=== PATIENT | male | born 1975 | race Caucasian/White ===

== ENCOUNTER → 2016-08-31 | Outpatient (CLI) | payer OTHER ==
[2016-08-31 11:36] LABS: HIV ANTIBODY NEGATIVE (N); HIV-1 P24 ANTIGEN NEGATIVE (N)
[2016-09-01 13:15] LABS: HEP B CORE IGM ANTIBODY Negative (Negative); HEPATITIS B SURFACE AG Negative (Negative)
[2016-09-01 14:23] LABS: HEPATITIS C ANTIBODY SCREEN Negative (Negative); SYPHILIS IGG WITH REFLEX Negative (Negative)
== END ==
LOC: MOB LAB 09:52
PROVIDERS: ATTEND Physician Assistant Medical
DX: Z11.3 Encounter for screening for infections with a predominantly sexual mode of transmission (principal)
CPT/HCPCS: 36415; 86695; 86696; 86703; 86705; 86709; 86780; 86803; 87340; 87491; 87591

== ENCOUNTER → 2016-09-03 | Outpatient (CLI) | payer OTHER ==
[2016-09-03 10:57] LABS: HEMATOCRIT 49.2 % (42.0-52.0); HEMOGLOBIN 17.5 g/dL (14.0-18.0); MEAN CORPUSCULAR HEMOGLOBIN 32.5 PG (27-31); MEAN CORPUSCULAR HGB CONC 35.6 g/dL (33-37); MEAN PLATELET VOLUME 9.3 FL (7.4-12.2); RDW COEFFICIENT OF VARIATION 12.3 % (11.5-14.5); RED BLOOD COUNT 5.38 10^6/uL (4.70-6.10); WHITE BLOOD COUNT 5.8 10^3/uL (4.8-10.8)
[2016-09-03 11:03] LABS: BLOOD UREA NITROGEN 15 mg/dL (7-22); BUN/CREATININE RATIO 13.63 (6-20); CALCIUM 9.7 mg/dL (8.7-10.7); CHLORIDE 102 meq/L (98-112); CREATININE 1.1 mg/dL (0.70-1.50); EST GLOMERULAR FILTRATION > 60 (>60 ml/min/1.73m(2)); GLUCOSE 86 mg/dL (78-110); POTASSIUM 4.3 meq/L (3.8-5.2); SODIUM 140 meq/L (135-145)
[2016-09-03 11:04] LABS: ASPARTATE AMINO TRANSFERASE 33 IU/L (21-57); BILIRUBIN,TOTAL 0.9 mg/dL (0.3-1.2); HDL CHOLESTEROL 55 mg/dL (40-150); TRIGLYCERIDES 170 mg/dL (44-200)
== END ==
LOC: MOB LAB 09:28
PROVIDERS: ATTEND Family Medicine
DX: Z00.00 Encounter for general adult medical examination without abnormal findings (principal); Z80.9 Family history of malignant neoplasm, unspecified; Z87.891 Personal history of nicotine dependence; Z12.5 Encounter for screening for malignant neoplasm of prostate
CPT/HCPCS: 36415; 80053; 80061; 85027; G0103

== ENCOUNTER → 2016-09-07 | Outpatient (CLI) | payer OTHER ==
--- NOTE | 2016-09-07 12:38 | DI ---
MAMMO U/L DIAGNOSTIC,09/07/2016 11:30 AM: Clinical History: Left breast mass. Previous Exam: None at this facility. Findings: CC and MLO views of the left breast are obtained, and demonstrate normal fatty tissue. There is no si gnificant breast tissue. There is no mass nor architectural distortion. Impression: No mammographic evidence of malignancy. BIRADS: 2: Benign findings Recommendations: Annual screening. Note: Breast examination has been discussed and encouraged, and the patient informed to return if the re is any new palpable abnormality in the interval between screening. Overall imaging assessment: Benign findings.
--- NOTE | 2016-09-07 13:00 | DI ---
PA /LATERAL CHEST X-RAY, 09/07/2016 10:44 AM : Clinical History: Routine check. Previous Exam: None at this facility. There is no acute soft tissue or bony abnormality. Heart size is normal. Lungs are clear. Mediastinal structures are normal. There are no pulmonary nodules. IMPRESSION: Normal chest x-ray.
== END ==
LOC: US 10:38
PROVIDERS: ATTEND Family Medicine
DX: Z00.00 Encounter for general adult medical examination without abnormal findings (principal); N63 Unspecified lump in breast
CPT/HCPCS: 71020; G0206